=== PATIENT | male | born 1990 | race Caucasian/White ===

== ENCOUNTER → 2019-08-05 14:16 | Outpatient (CLI) | payer OTHER, SELFPAY ==
[2019-08-10 09:09] LABS: (tTG) Ab, IgA < 1 U/mL
== END ==
PROVIDERS: PCP Family Medicine; Visit Provider Family Medicine
DX: R10.13 Epigastric pain (principal); R21 Rash and other nonspecific skin eruption; Z83.79 Family history of other diseases of the digestive system
CPT/HCPCS: 36415; 82784; 83516; 86255

== ENCOUNTER → 2019-08-27 16:33 | Outpatient (CLI) | payer OTHER, SELFPAY ==
[2019-08-31 08:20] LABS: Beef f27 IgG 9.9 mcg/mL (< 2.0); Codfish f3 IgG 9.1 mcg/mL (< 2.0); Egg White (f1) IgG 3.7 mcg/mL (< 2.0); Maize/Corn f8 IgG 10.4 mcg/mL (< 2.0); Orange f33 IgG 5.8 mcg/mL (< 2.0); Peanut f13 IgG 8.6 mcg/mL (< 2.0); Soybean f14 IgG 6.2 mcg/mL (< 2.0); Wheat (f4) IgG 16.8 mcg/mL (< 2.0)
== END ==
PROVIDERS: PCP Family Medicine; Referring Provider Family Medicine; Visit Provider Family Medicine
DX: K58.2 Mixed irritable bowel syndrome (principal)
CPT/HCPCS: 36415; 86001